=== PATIENT | female | born 2000 | race African-American/Black ===

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

== ENCOUNTER 2019-01-06 10:06 | Emergency (ER) | payer OTHER ==
[2019-01-06] MEDS ORDERED: Acetaminophen 500 MG TAB ONE (10:26)
[2019-01-06] MEDS ORDERED: Dexamethasone 10 MG/ML VIAL ONE (10:50)
[2019-01-06] MEDS ORDERED: Ibuprofen 800 MG TAB ONE (11:31)
== END 2019-01-06 12:43 | disposition home or self-care (01) ==
LOC: ERS 10:06
DX: J02.9 Acute pharyngitis, unspecified (principal); F41.9 Anxiety disorder, unspecified; F32.9 Major depressive disorder, single episode, unspecified
CPT/HCPCS: 87081; 87430; 96360; 96372; J1100

== ENCOUNTER 2022-04-05 20:26 | Emergency (ER) | payer BC | END 2022-04-05 23:03 | disposition home or self-care (01) | LOC: ERS 20:26 | DX: J03.90 Acute tonsillitis, unspecified (principal) | CPT/HCPCS: 87081; 87430; 99283 ==

== ENCOUNTER 2022-04-29 21:43 | Emergency (ER) | payer BC | END 2022-04-30 00:09 | disposition left against medical advice (07) | LOC: ERS 21:43 | DX: Z53.21 Procedure and treatment not carried out due to patient leaving prior to being seen by health care provider (principal) ==

== ENCOUNTER 2022-04-30 06:04 | Emergency (ER) | payer BC ==
[2022-04-30] MEDS ORDERED: Ketorolac Tromethamine 30 MG/ML VIAL ONE (07:10)
== END 2022-04-30 07:10 | disposition home or self-care (01) ==
LOC: ERS 06:04
DX: U07.1 COVID-19 (principal); J02.9 Acute pharyngitis, unspecified
CPT/HCPCS: 96372; 99283; J1885; U0003; U0005

== ENCOUNTER 2023-06-25 12:08 | Emergency (ER) | payer BC ==
[2023-06-25] MEDS ORDERED: Dexamethasone 10 MG/ML VIAL ONE (12:40)
[2023-06-25] MEDS ORDERED: Acetaminophen 500 MG TAB ONE (12:40)
[2023-06-25] MEDS ORDERED: Ibuprofen 800 MG TAB ONE (13:32)
== END 2023-06-25 14:50 | disposition home or self-care (01) ==
LOC: ERS 12:08
DX: J02.0 Streptococcal pharyngitis (principal)
CPT/HCPCS: 70491; 87430; J1100

== ENCOUNTER 2023-09-03 10:31 | Emergency (ER) | payer BC ==
[2023-09-03] MEDS ORDERED: Acetaminophen 500 MG TAB ONE (11:24)
[2023-09-03] MEDS ORDERED: Ibuprofen 200 MG TAB ONE (11:24)
[2023-09-03 11:31] LABS: SARS-CoV-2 NAA Rapid Test Not Detected (NotDetected)
== END 2023-09-03 12:11 | disposition home or self-care (01) ==
LOC: ERS 10:31
DX: J10.1 Influenza due to other identified influenza virus with other respiratory manifestations (principal)
CPT/HCPCS: 71046

== ENCOUNTER 2025-04-23 07:56 | Inpatient (IN) | payer OTHER ==
[2025-04-23 09:03] LABS: Bacteria/HPF None Seen HPF (None Seen); CAUTI Indications for Culture Pelvic or flank pain; Glucose, Urine (Dipstick) Normal (Negative); Leukocyte 75 Leu/uL (Negative); Protein, Urine (Dipstick) Negative (Neg-Trace); RBC/HPF 0-3 HPF (0-3); Specific Gravity, Urine 1.018 (1.002-1.036); WBC/HPF 0-3 HPF (0-3)
[2025-04-23 09:10] LABS: Pregnancy Test - Urine (BHCG) Negative (Negative); Pregu Control Background? CLEAR/WHITE (CLR/WHITE); Pregu Control Bar Appear? YES (CONTROL BAR); Urine Culture Reflex No No
[2025-04-23] MEDS ORDERED: Ondansetron PF 4 MG/2 ML Vial ONE (09:16)
[2025-04-23] MEDS ORDERED: Ketorolac Tromethamine 30 MG (1 mL) VIAL ONE (09:16)
[2025-04-23 09:35] LABS: Hematocrit 34.4 % (36.0-47.0); Hemoglobin 10.0 g/dL (12.0-16.0); Mean Corpuscular Hemoglobin 22.3 pg (27.0-31.0); Mean Corpuscular Volume 76.6 fL (78.0-98.0); Platelet Count 377 10x3/uL (130-400); Red Blood Cell (RBC) Count 4.49 mill/uL (4.20-5.40); White Blood Cell (WBC) Count 9.95 10x3/uL (4.8-10.8)
[2025-04-23 10:05] LABS: Anisocytosis SLIGHT = 6-15 cells HPF (0-5); Ovalocytes SLIGHT = 2-5 cells HPF (0-1); Platelet Adequacy Comment Platelets Normal; Polychromasia SLIGHT = 2-3 cells HPF (0-2); Smudge Cells 4.0 %
[2025-04-23 10:06] LABS: ALT (SGPT) 20 U/L (Less than 34); AST (SGOT) 34 U/L (11-34); Albumin 4.1 g/dL (3.1-4.5); Alkaline Phosphatase 86 U/L (40-110); Anion Gap 13 mmol/L (10-20); BUN (Urea Nitrogen) 11 mg/dL (7.0-18.7); Bilirubin, Total 0.2 mg/dL (0.3-1.2); Calc. Creatinine Clearance 0 mL/min (70-130); Calcium 9.1 mg/dL (7.8-10.44); Carbon Dioxide 21 mmol/L (22-29); Chloride 109 mmol/L (98-107); Globulin 3.5 g/dL (2.4-3.5); Glucose 89 mg/dL (70-105); Lipase 10 U/L (8-78); Potassium 4.5 mmol/L (3.5-5.1); Sodium 138 mmol/L (136-145)
[2025-04-23] MEDS ORDERED: Glucagon 1 MG/ML KIT IM PRN (11:14)
[2025-04-23] MEDS ORDERED: Ondansetron PF 4 MG/2 ML Vial IVP PRN (11:14)
[2025-04-23] MEDS ORDERED: Dextrose 50% Abboject 50 ML SYRINGE SLOW IVP PRN (11:14)
[2025-04-23 15:31] VITALS: BMI 42.8
[2025-04-24 05:33] LABS: #Basophils 0.03 10x3/uL (0.0-0.2); #Eosinophils 0.29 10x3/uL (0.0-0.7); #Monocytes 0.44 10x3/uL (0.11-0.59); #Neutrophils 3.11 10x3/uL (1.40-6.50); %Basophils 0.4 % (0.0-1.0); %Eosinophils 4.3 % (0.0-10.0); %Lymphocytes 42.8 % (21.0-51.0); %Monocytes 6.5 % (0.0-10.0); %Neutrophils 45.9 % (42.0-75.0); Hematocrit 31.2 % (36.0-47.0); Hemoglobin 8.6 g/dL (12.0-16.0); Mean Corpuscular Hemoglobin 21.9 pg (27.0-31.0); Mean Corpuscular Volume 79.4 fL (78.0-98.0); Platelet Count 339 10x3/uL (130-400); Red Blood Cell (RBC) Count 3.93 mill/uL (4.20-5.40); White Blood Cell (WBC) Count 6.78 10x3/uL (4.8-10.8)
[2025-04-24 06:02] LABS: Anion Gap 14 mmol/L (10-20); BUN (Urea Nitrogen) 11 mg/dL (7.0-18.7); Calc. Creatinine Clearance 191 mL/min (70-130); Calcium 8.4 mg/dL (7.8-10.44); Carbon Dioxide 21 mmol/L (22-29); Chloride 109 mmol/L (98-107); Glucose 84 mg/dL (70-105); Potassium 3.8 mmol/L (3.5-5.1); Sodium 140 mmol/L (136-145)
[2025-04-24] MEDS ORDERED: PROPOFOL 20 ML ONE (11:36)
[2025-04-24] MEDS ORDERED: fentaNYL PF 100 MCG/2 ML SYRINGE ONE (11:36)
[2025-04-24] MEDS ORDERED: Rocuronium Bromide 10 MG/ML (10ML VIAL) ONE (11:36)
[2025-04-24] MEDS ORDERED: Lidocaine 1% PF 5 ML VIAL ONE (11:36)
[2025-04-24] MEDS ORDERED: SUGAMMADEX SODIUM 200 MG/2 ML VIAL ONE (11:36)
[2025-04-24] MEDS ORDERED: Ondansetron PF 4 MG/2 ML Vial ONE (11:36)
[2025-04-24] MEDS: Methocarbamol 500 MG TAB PO PRN (20:44)
[2025-04-24] MEDS: Acetaminophen 325 MG TAB PO PRN (20:44)
[2025-04-25 06:00] LABS: #Basophils Less than 0.03 10x3/uL (0.0-0.2); #Eosinophils Less than 0.03 10x3/uL (0.0-0.7); #Monocytes 0.42 10x3/uL (0.11-0.59); #Neutrophils 7.58 10x3/uL (1.40-6.50); %Basophils 0.1 % (0.0-1.0); %Eosinophils 0.1 % (0.0-10.0); %Lymphocytes 20.2 % (21.0-51.0); %Monocytes 4.2 % (0.0-10.0); %Neutrophils 75.1 % (42.0-75.0); Hematocrit 32.4 % (36.0-47.0); Hemoglobin 9.0 g/dL (12.0-16.0); Mean Corpuscular Hemoglobin 22.1 pg (27.0-31.0); Mean Corpuscular Volume 79.6 fL (78.0-98.0); Platelet Count 367 10x3/uL (130-400); Red Blood Cell (RBC) Count 4.07 mill/uL (4.20-5.40); White Blood Cell (WBC) Count 10.09 10x3/uL (4.8-10.8)
[2025-04-25 06:04] LABS: Anion Gap 13 mmol/L (10-20); BUN (Urea Nitrogen) 9 mg/dL (7.0-18.7); Calc. Creatinine Clearance 202 mL/min (70-130); Calcium 8.6 mg/dL (7.8-10.44); Carbon Dioxide 21 mmol/L (22-29); Chloride 111 mmol/L (98-107); Glucose 102 mg/dL (70-105); Potassium 4.4 mmol/L (3.5-5.1); Sodium 141 mmol/L (136-145)
[2025-04-25 07:58] VITALS: TEMP 98.3
[2025-04-25 12:15] VITALS: BP 153/91
== END 2025-04-25 14:28 | disposition home or self-care (01) | DRG 419 ==
LOC: ERS 07:56 → T4-A 11:19 → OBSVTOIN 04-25 09:19
PROVIDERS: ADMIT Surgery; ATTEND Surgery
PROC: 0FT44ZZ Resection of Gallbladder, Percutaneous Endoscopic Approach (ICD-10-PCS; principal; 2025-04-25)
PROC: 8E0W4CZ Robotic Assisted Procedure of Trunk Region, Percutaneous Endoscopic Approach (ICD-10-PCS; 2025-04-25)
PROC: 3E03329 Introduction of Other Anti-infective into Peripheral Vein, Percutaneous Approach (ICD-10-PCS; 2025-04-25)
DX: K81.0 Acute cholecystitis (principal); F41.9 Anxiety disorder, unspecified; F32.A Depression, unspecified; Z60.2 Problems related to living alone; Z79.899 Other long term (current) drug therapy
CPT/HCPCS: 36415; 76705; 78226; 80048; 80053; 81001; 81025; 83690; 85025; 88304; 96365; 96366; 96375; 96376; 99282; A9537; C1713; G0378; J0694; J1100; J1885; J2250; J2272; J2405; J2543; J2550; J2704; J3010; J7030; S2900